=== PATIENT | male | born 1975 | race Caucasian/White ===

== ENCOUNTER 2020-03-23 16:20 | Emergency (ER) | payer SELFPAY ==
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
--- NOTE | 2020-03-23 17:46 | CR ---
Chest and right ribs: Frontal view of the chest was obtained as well as additional 4 views of the right ribs. Prior resection of the distal right clavicle is noted. Heart size and mediastinum are normal. Several old healed left-sided rib fractures are noted. Lungs show no acute parenchymal change. No discrete right-sided rib abnormality is appreciated. Impression: 1. Findings as noted above. 2. Nothing acute is appreciated on frontal chest x-ray. No definite acute fracture is noted within the right ribs. Diagnostic code #2 This report was dictated in MDT
[2020-03-23 18:02] VITALS: BP 124/77; PULSE 78
== END 2020-03-23 18:01 | disposition home or self-care (01) ==
LOC: MW.ED 16:20
DX: R07.81 Pleurodynia (principal); F17.210 Nicotine dependence, cigarettes, uncomplicated
CPT/HCPCS: 71101-26-RT; 71101-RT; 99283

== ENCOUNTER 2025-03-05 12:33 | Emergency (ER) | payer BC ==
[2025-03-05] MEDS: Sodium Chloride 0.9% 1,000 ML IV ONE (13:12)
[2025-03-05] MEDS: droPERidol 2.5 MG/ML SDV IVPUSH ONE (13:12)
[2025-03-05 13:13] LABS: BASOPHILS ABSOLUTE AUTO 0.05 K/uL (0.00-0.20); BASOPHILS PERCENT AUTO 0.7 % (0.0-1.0); EOSINOPHILS ABSOLUTE AUTO 0.22 K/uL (0.00-0.45); EOSINOPHILS PERCENT AUTO 2.9 % (0.0-6.0); HEMATOCRIT 47.7 % (42.0-52.0); IMMATURE GRAN ABSOLUTE AUTO 0.03 K/uL (0.00-0.05); IMMATURE GRAN PERCENT AUTO 0.4 % (0.0-0.4); LYMPHOCYTES ABSOLUTE AUTO 1.96 K/uL (1.00-4.80); LYMPHOCYTES PERCENT AUTO 25.7 % (24.0-44.0); MEAN CORPUSCULAR HEMOGLOBIN 35.9 pg (28.0-32.0); MEAN CORPUSCULAR HGB CONC 35.6 g/dL (32.0-36.0); MEAN CORPUSCULAR VOLUME 100.8 fL (83.0-99.0); MEAN PLATELET VOLUME 9.8 fL (9.4-12.4); MONOCYTES ABSOLUTE AUTO 0.81 K/uL (0.00-0.80); MONOCYTES PERCENT AUTO 10.6 % (0.0-8.0); NEUTROPHILS ABSOLUTE AUTO 4.57 K/uL (1.80-7.70); NEUTROPHILS PERCENT AUTO 59.7 % (41.0-71.0); PLATELET COUNT,PLT 213 K/uL (150-400); RED BLOOD CELL COUNT 4.73 M/uL (4.52-5.90); WHITE BLOOD CELL COUNT,WBC 7.64 K/uL (3.9-11.3)
[2025-03-05] MEDS: Pantoprazole 40 MG in Sodium Chloride 0.9% 10 ML IVPUSH ONE (13:13)
[2025-03-05 13:27] LABS: INR 1.08 (0.86-1.11)
[2025-03-05] MEDS: Iopamidol 755 MG/ML 500 ML Multipack Bottle IVPUSH STA (13:28)
[2025-03-05 13:46] LABS: A/G RATIO 0.9 (0.9-1.6); ALBUMIN 3.9 g/dL (3.4-5.0); BILIRUBIN TOTAL 1.7 mg/dL (0.2-1.0); CARBON DIOXIDE,CO2 25.1 mmol/L (21.0-32.0); CREATININE 0.9 mg/dL (0.8-1.3); EST CRCL DRUG DOSING (CG) 117.97 mL/min; MAGNESIUM 1.9 mg/dL (1.8-2.4); POTASSIUM,K 3.9 mmol/L (3.5-5.1); PROTEIN TOTAL,TP 8.1 g/dL (6.4-8.2)
[2025-03-05 14:01] LABS: CALCIUM 9.1 mg/dL (8.5-10.1)
[2025-03-05] MEDS: Alum Hydrox/Mag Hydrox/Simeth 15 ML, Metoclopramide 5 MG, Lidocaine 2% 5 ML PO ONE (14:09)
[2025-03-05 14:22] VITALS: BP 139/91; PULSE 58
== END 2025-03-05 14:29 | disposition home or self-care (01) ==
LOC: MW.ED 12:33
DX: K21.9 Gastro-esophageal reflux disease without esophagitis (principal); F10.120 Alcohol abuse with intoxication, uncomplicated; R94.5 Abnormal results of liver function studies; R91.1 Solitary pulmonary nodule; N28.9 Disorder of kidney and ureter, unspecified; Z79.899 Other long term (current) drug therapy; Y90.9 Presence of alcohol in blood, level not specified
CPT/HCPCS: 36415; 71045; 74177; 80053; 80307; 83690; 83735; 83880; 84484; 85025; 85610; 93005; 96361; 96374; 96375; 99285; A9270; J1790; J2470; J7030; Q9967; 93010; 99284